=== PATIENT | male | born 1955 | race African-American/Black ===

== ENCOUNTER 2018-12-03 05:57 | Emergency (ER) | payer SELFPAY ==
[~2018-12-03] VITALS: Ht 185.4 cm; Wt 112.5 kg
[2018-12-03] MEDS ORDERED: SODIUM CHLORIDE 0.9% 500ML 500 ML IV STA (06:18)
[2018-12-03] MEDS ORDERED: FENTANYL CITRATE/PF 100MCG/2 ML INJ IV ONE (06:30)
[2018-12-03] MEDS ORDERED: FAMOTIDINE 20 MG/2 ML VIAL IV ONE ×2 (06:30→06:32)
[2018-12-03] MEDS ORDERED: ONDANSETRON HCL INJ 2MG/ML 2ML 2 MG/ML VIAL IV ONE (06:30)
[2018-12-03] MEDS ORDERED: HYDROMORPHONE 2MG/ML 2 MG/ML ML IV ONE (06:30)
[2018-12-03] MEDS ORDERED: IOPAMIDOL 370 MG/ML 200 ML INFUS..BTL INJ ONE (06:44)
[2018-12-03] MEDS ORDERED: SODIUM CHLORIDE 0.9% 50ML 50 ML ONE (06:44)
--- NOTE | 2018-12-03 07:46 | Diagnostic Imaging Report ---
EXAM: CT Abdomen and Pelvis WITH contrast INDICATION: Left lower quadrant abdominal pain. COMPARISON: None. TECHNIQUE: Abdomen and pelvis were scanned utilizing a multidetector helical scanner from the lung base to the pubic symphysis after administration of IV contrast. Coronal and sagittal reformations were obtained. Routine protocol was performed. Scan was performed when during portal venous phase. IV CONTRAST: 100 cc of Isovue 370 COMPLICATIONS: None RADIATION DOSE: Total DLP: 871.9 mGy*cm Dose modulation, iterative reconstruction, and/or weight based adjustment of the mA/kV was utilized to reduce the radiation dose to as low as reasonably achievable. FINDINGS: Motion artifact limits evaluation of the lower abdomen. Streak artifact limits evaluation of the pelvis. LINES and TUBES: None. LOWER THORAX: Coronary atherosclerosis. HEPATOBILIARY: Diffuse mild hepatic steatosis. No evidence of focal lesion. No biliary ductal dilation. GALLBLADDER: No evidence of wall thickening or pericholecystic fluid. There is a 6 mm hyperdense focus along the inferior wall of the gallbladder on axial series 2, image 43, and coronal image 37. SPLEEN: No splenomegaly. PANCREAS: No focal masses or ductal dilatation. ADRENALS: No adrenal nodules KIDNEYS/URETERS: Kidneys enhance symmetrically. There are punctate bilateral 2 mm renal stones, in the right upper pole on image 43, right lower pole on image 53, left midpole on image 47, and left lower pole on image 55. Evaluation for distal ureteral stone is limited. There is a possible 1 mm left distal ureteral/UVJ stone versus artifact on series 2, image 90. There is mild left hydroureter and trace left hydronephrosis. GI TRACT: No evidence of wall thickening or distension. Appendix is normal. PELVIC ORGANS/BLADDER: Limited evaluation secondary to streak artifact. Possible 1 mm left distal ureteral stone as above. LYMPH NODES: No lymphadenopathy. VESSELS: There is moderate atherosclerotic disease in the aorta and major arterial branches. Mildly ectatic distal abdominal aorta at the bifurcation, measuring up to 2.4 cm. PERITONEUM / RETROPERITONEUM: No free air or fluid. BONES/SOFT TISSUES: No acute osseous abnormality. No suspicious lytic or blastic lesions. Degenerative changes of the visualized spine. 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 CONCLUSION: Possible 1 mm left distal ureteral/UVJ stone with mild left hydroureter and trace left hydronephrosis. Substantially limited evaluation of the pelvis secondary to streak artifact from hip arthroplasties. Renal ultrasound may be considered for further evaluation. Punctate bilateral nonobstructing 2 mm renal stones. Cholelithiasis versus 6 mm gallbladder polyp. Recommend right upper quadrant abdominal ultrasound for further evaluation. Diffuse mild fatty liver. Signed by: Dr. Chrissy Franklin MD on 12/03/2018 7:43 AM
[2018-12-03] MEDS ORDERED: KETOROLAC TROMETHAMINE 30 MG/ML VIAL ONE (07:54)
[2018-12-03 07:56] VITALS: BP 162/79
[2018-12-03] MEDS ORDERED: KETOROLAC TROMETHAMINE 30 MG/ML VIAL IV STA (07:59)
== END 2018-12-03 08:14 | disposition home or self-care (01) ==
LOC: FSED 05:57
DX: N13.2 Hydronephrosis with renal and ureteral calculous obstruction (principal); E11.9 Type 2 diabetes mellitus without complications; K80.20 Calculus of gallbladder without cholecystitis without obstruction; K76.0 Fatty (change of) liver, not elsewhere classified; I25.2 Old myocardial infarction
CPT/HCPCS: 74177; 80053; 81003; 82553; 84484; 85025; 93005; 99284; J1885; J2405; J7040; Q9967

== ENCOUNTER 2020-04-27 06:17 | Emergency (ER) | payer OTHER ==
[~2020-04-27] VITALS: Ht 185.4 cm; Wt 112.5 kg
[2020-04-27] MEDS ORDERED: ACETAMINOPHEN 325 MG TAB PO ONE (06:45)
[2020-04-27] MEDS ORDERED: ONDANSETRON HCL 4 MG ORAL DISINTEGRATING TAB PO ONE (06:45)
[2020-04-27] MEDS ORDERED: KETOROLAC TROMETHAMINE 30 MG/ML VIAL IM ONE (06:45)
[2020-04-27] MEDS ORDERED: IBUPROFEN IB200 MG PO (06:51)
[2020-04-27] MEDS ORDERED: TYLENOL # 31 EA PO (06:51)
--- NOTE | 2020-04-27 06:51 | Emergency Department Note ---
History of Present Illnes History of Present Illness Chief Complaint: Extremity Trauma/Pain History of Present Illness This is a 64 year old male dm, htn c/o right shoulder pain for 3 days, getting worse . Historian: Patient Arrival Mode: Car Teacher Required: No Onset (how long ago): day(s) Radiation: Reports back Severity: moderate Onset quality: gradual Duration (how long): day(s) Timing of current episode: constant Progression: worsening Relieving factors: immobilization Exacerbating factors: movement Associated symptoms: Reports denies other symptoms, Reports other Past Medical/Family History Physician Review I have reviewed the patient's past medical and family history. Any updates have been documented here. Past Medical History Recent Fever: No Clinical Suspicion of Infectio: No New/Unexplained Change in Ment: No Past Medical History: Diabetes, [place] Other Surgery: STENTS Other Last Tetanus: UNK Review of Systems Review of Systems Constitutional: Reports no symptoms EENTM: Reports no symptoms Cardiovascular: Reports no symptoms Respiratory: Reports no symptoms Gastrointestinal: Reports no symptoms Genitourinary: Reports no symptoms Musculoskeletal: Reports as per HPI, Reports joint pain Integumentary: Reports no symptoms Neurological: Reports no symptoms Psychological: Reports no symptoms Endocrine: Reports no symptoms Hematological/Lymphatic: Reports no symptoms Physical Exam Related Data Allergies: Coded Allergies: No Known Allergies (Unverified , 12/03/18) Triage Vital Signs Vital Signs Date Time Temp Pulse Resp B/P (MAP) Pulse Ox O2 Delivery O2 Flow Rate FiO2 04/27/20 06:30 98.4 60 18 166/82 97 Room Air Vital signs reviewed: Yes Physical Exam CONSTITUTIONAL Constitutional: Present well-developed, Present well-nourished HENT HENT: Present normocephalic, Present atraumatic, Present oropharynx clear/moist, Present nose normal HENT L/R: Present left ext ear normal, Present right ext ear normal EYES Eyes: Reports PERRL, Reports conjunctivae normal NECK Neck: Present ROM normal PULMONARY Pulmonary: Present effort normal, Present breath sounds normal CARDIOVASCULAR Cardiovascular: Present regular rhythm, Present heart sounds normal, Present c apillary refill normal, Present normal rate GASTROINTESTINAL Abdominal: Present soft, Present nontender, Present bowel sounds normal GENITOURINARY Genitourinary: Present exam deferred SKIN Skin: Present warm, Present dry MUSCULOSKELETAL Musculoskeletal: Present tenderness, Present other (limted ROM, tender right shoulder) NEUROLOGICAL Neurological: Present alert, Present oriented x 3, Present no gross motor or sensory deficits PSYCHOLOGICAL Psychological: Present mood/affect normal, Present judgement normal Results Imaging Imaging results reviewed: Yes Assessment & Plan Medical Decision Making MDM DJD, fx Assessment & Plan Final Impression: (1) Shoulder arthritis (2) Adhesive capsulitis of right shoulder Depart Disposition: HOME, SELF-CARE Last Vital Signs Date Time Temp Pulse Resp B/P (MAP) Pulse Ox O2 Delivery O2 Flow Rate FiO2 04/27/20 06:30 98.4 60 18 166/82 97 Room Air Home Meds Active Scripts Ibuprofen (IBUPROFEN IB) 200 Mg Tablet, 3 TAB PO Q6H PRN for pain, #60 Prov:ALTON MAGUIRE MD 04/27/20 Acetaminophen/Codeine* (TYLENOL # 3*) 1 Ea Tab, 1 TAB PO Q4HR PRN for pain or cough, #30 Prov:ALTON MAGUIRE MD 04/27/20 ALTON MAGUIRE MD Apr 27, 2020 06:51
--- NOTE | 2020-04-27 06:58 | NUR ---
Assumed care of pt after geting report from SORAYA Ojeda
[2020-04-27] MEDS ORDERED: ACETAMINOPHEN 325 MG TAB ONE (07:07)
[2020-04-27] MEDS ORDERED: KETOROLAC TROMETHAMINE 30 MG/ML VIAL ONE (07:07)
[2020-04-27] MEDS ORDERED: ONDANSETRON HCL 4 MG ORAL DISINTEGRATING TAB ONE (07:07)
[2020-04-27 08:03] VITALS: BP 133/74
--- NOTE | 2020-04-27 08:19 | Diagnostic Imaging Report ---
X-ray right shoulder 2 views HISTORY: Pain. COMPARISON: None available. FINDINGS: Bones: No acute displaced fracture. Osseous alignment is within normal limits. Subacromial spur. Joints: The joint spaces are well-maintained. Degenerative changes in the shoulder. Soft tissues: Calcifications adjacent to the greater tuberosity. IMPRESSION: No acute radiographic osseous abnormality. Rotator cuff calcific tendinopathy. Degenerative changes in the shoulder. Signed by: Javi Sandoval DO on 04/27/2020 8:16 AM
--- OUTSIDE RECORDS SUMMARY | 2020-04-27 09:36 | XMS REPORT | Continuity of Care Document ---
Author Author [facility] t Organization [facility] Address [address] [place] [address] Phone Unavailable Care Team Providers Care Orthopedically Impaired Teacher Name Role Phone NONSTAFF PCP Unavailable Fernando MAGUIRE Atteric Unavailable Payers Payer Name Policy Type Policy Number Effective Date Expiration Date [facility] flor [facility] [id number] 2018 00:00:00 [facility] Problems Condition Name Condition Details Condition Category Status Onset Date Resolution Date Last Treatment Date Treating Clinician Comments Source Arthritis of shoulder Problem Active [facility] Adhesive capsulitis of right shoulder Problem Active [facility] Allergies, Adverse Reactions, Alerts This patient has no known allergies or adverse reactions. Social History Social Habit Start Date Stop Date Quantity Comments Source Sex Assigned At 1955 00:00:00 1955 00:00:00 Male [facility] Medications Ordered Medication Name Filled Medication Name Start Date Stop Da te Current Medication? Ordering Clinician Indication Dosage Frequency Signature (SIG) Comments Components Source Acetaminophen/Codeine Phosphate (Tylenol # 3*) 1 Ea TA B Acetaminophen/Codeine Phosphate (Tylenol # 3*) 1 Ea TAB 2020-04-27 06:51:00 Yes 1 Every 4 Hours as needed for Pain Or Cough [facility] Ibuprofen (Ibuprofen Ib) 200 Mg TABLET Ibuprofen (Ibuprofen Ib) 200 Mg TABLET 2020-04-27 06:51:00 Yes 3 Every 6 Hours as n eeded for Pain [facility] Vital Signs Vital Name Observation Time Observation Value Comments Source Body Temperature 2020-04-27 08:03:00 98.7 [degF] [facility] Heart Rate 2020-04-27 08:03:00 56 /min [facility] Respiratory rate 2020-04-27 08:03:00 16 /min [facility] BP Systolic 2020-04-27 08:03:00 133 mm[Hg] [facility] BP Diastolic 2020-04-27 08:03:00 74 mm[Hg] [facility] Weight 2020-04-27 06:30:00 248 [lb_av] [facility] BMI (Body Mass Index) 2020-04-27 06:30:00 32.7 kg/m2 [facility] Procedures This patient has no known procedures. Plan of Care Planned Activity Planned Date Details Comments Source Instructions Bursitis - Shoulder [facility] Instructions RICE Therapy [facility] Encounters Start Date/Time End Date/Time Encounter Type Admission Type [facility] Care Department Encounter ID Source 2020-04-27 07:21:00 2020-04-27 08:20:00 Departed Emergency Room 1 [facility] [id number] [facility] 2018-12-03 05:57:00 2018-12-03 08:14:00 Departed Emergency Room 1 [facility] [id number] [facility] Results Test Description Test Time Test Comments Results Result Comments Source SHOULDER 2+VW RT - HOPD 2020-04-27 08:15:00 [facility] 1955 Sex: [place] [id number] Patient Name: DAVID EDGAR MR #: [id number] : 1955 Age/Sex: 64/M Req #: [id number] Adm Physician: Ordered by: ALTON MAGUIRE MD Report #: [id number] Location: [facility] Room/Bed: Procedure: [id number] HOPD/SHOULDER 2+VW RT - HOPD Exam Date: 04/27/20 Exam Time: 06 REPORT STATUS: Signed X-ray right shoulder 2 views HISTORY: Pain. COMPARISON: None available. FINDINGS: Bones: No acute displaced fracture. Osseous alignment is within normal limits. Subacromial spur. Joints: The joint spaces are well-maintained. Degenerative changes in the shoulder. Soft tissues: Calcifications adjacent to the greater tuberosity. IMPRESSION: No acute radiographic osseous abnormality. Rotator cuff calcific tendinopathy. Degenerative changes in the shoulder. Signed by: Javi Sandoval DO on 04/27/2020 8:16 AM Dictated By: JAVI SANDOVAL DO 5 Transcribed By: EMANI on 04/27/20815 COPY TO: ALTON MAGUIRE MD CT ABD/PEL WITH CONTRAST-HOPD 2018-12-03 07:24:00 [place] [id number] Patient Name: DAVID EDGAR MR #: [id number] : 1955 Age/Sex: 63/M Req #: [id number] Adm Physician: Ordered by: ALTON MAGUIRE MD Report #: [id number] Location: [facility] Room/Bed: Procedure: [id number] HOPD/CT ABD/PEL WITH CONTRAST-HOPD Exam Date: 12/03/18 Exam Time: 0700 REPORT STATUS: Signed EXAM: CT Abdomen and Pelvis WITH contrast INDICATION: Left lower quadrant abdominal pain. COMPARISON: None. TECHNIQUE: Abdomen and pelvis were scanned utilizing a multidetector helical scanner from the lung base to the pubic symphysis after administration of IV contrast. Coronal and sagittal reformations were obtained. Routine protocol was performed. Scan was performed when during portal venous phase. IV CONTRAST: 100 cc of Isovue 370 COMPLICATIONS: None RADIATION DOSE: Total DLP: 871.9 mGy*cm Dose modulation, iterative reconstruction, and/or weight based adjustment of the mA/kV was utilized to reduce the radiation dose to as low as reasonably achievable. FINDINGS: Motion artifact limits evaluation of the lower abdomen. Streak artifact limits evaluation of the pelvis. LINES and TUBES: None. LOWER THORAX: Coronary atherosclerosis. HEPATOBILIARY: Diffuse mild hepatic steatosis. No evidence of focal lesion. No biliary ductal dilation. GALLBLADDER: No evidence of wall thickening or pericholecystic fluid. There is a 6 mm hyperdense focus along the inferior wall of the gallbladder on axial series 2, image 43, and coronal image 37. SPLEEN: No splenomegaly. PANCREAS: No focal masses or ductal dilatation. ADRENALS: No adrenal nodules KIDNEYS/URETERS: Kidneys enhance symmetrically. There are punctate bilateral 2 mm renal stones, in the right upper pole on image 43, right lower pole on image 53, left midpole on image 47, and left lower pole on image 55. Evaluation for distal ureteral stone is limited. There is a possible 1 mm left distal ureteral/UVJ stone versus artifact on series 2, image 90. There is mild left hydroureter and trace left hydronephrosis. GI TRACT: No evidence of wall thickening or distension. Appendix is normal. PELVIC ORGANS/BLADDER: Limited evaluation secondary to streak artifact. Possible 1 mm left distal ureteral stone as above. LYMPH NODES: No lymphadenopathy. VESSELS: There is moderate atherosclerotic disease in the aorta and major arterial branches. Mildly ectatic distal abdominal aorta at the bifurcation, measuring up to 2.4 cm. PERITONEUM / RETROPERITONEUM: No free air or fluid. BONES/SOFT TISSUES: No acute osseous abnormality. No suspicious lytic or blastic lesions. Degenerative changes of the visualized spine. 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 CONCLUSION: Possible 1 mm left distal ureteral/UVJ stone with mild left hydroureter and trace left hydronephrosis. Substantially limited evaluation of the pelvis secondary to streak artifact from hip arthroplasties. Renal ultrasound may be considered for further evaluation. Punctate bilateral nonobstructing 2 mm renal stones. Cholelithiasis versus 6 mm gallbladder polyp. Recommend right upper quadrant abdominal ultrasound for further evaluation. Diffuse mild fatty liver. Signed by: Dr. Jerome Gonzales MD on 12/03/2018 7:43 AM Dictated By: JEROME GONZALES MD Transcribed By: EMANI on 12/03/1874 COPY TO: ALTON MAGUIRE MD
== END 2020-04-27 08:20 | disposition home or self-care (01) ==
LOC: FSED 07:21
DX: M25.511 Pain in right shoulder (principal); M13.811 Other specified arthritis, right shoulder; M75.01 Adhesive capsulitis of right shoulder; E11.9 Type 2 diabetes mellitus without complications; I25.2 Old myocardial infarction; Z95.5 Presence of coronary angioplasty implant and graft
CPT/HCPCS: 73030; 96372; 99283; J1885; Q0162